=== PATIENT | male | born 1945 | race Caucasian/White ===

== ENCOUNTER → 2017-04-27 | Outpatient (CLI) | payer OTHER ==
[~2017-04-27] MED LIST: ASPI325T17 PO; DOCU-131 PO; IBUP200C8 PO; MULT-717 PO; NAPR220C2 PO; NAPROXEN PEG; ONDA4TAB7 PO; OXYC5TAB2 PO
== END ==
LOC: CFH 11:56
PROVIDERS: ATTEND Family Medicine
DX: M25.552 Pain in left hip (principal); M25.551 Pain in right hip; M25.571 Pain in right ankle and joints of right foot
CPT/HCPCS: 73523

== ENCOUNTER → 2017-11-16 | Outpatient (CLI) | payer OTHER ==
[~2017-11-16] MED LIST changes: +GADOBUTROL 7.5 MMOL/7.5 ML VIAL ONE
== END | disposition home or self-care (01) ==
LOC: CFH 09:36
PROVIDERS: ATTEND Psychiatry & Neurology Neurology
DX: G31.9 Degenerative disease of nervous system, unspecified (principal); K11.6 Mucocele of salivary gland
CPT/HCPCS: 70553; A9585

== ENCOUNTER 2020-01-05 11:16 | Observation (INO) | payer OTHER ==
[~2020-01-05] VITALS: Ht 188 cm; Wt 85.0 kg
[~2020-01-05 11:16] MED LIST changes: -GADOBUTROL 7.5 MMOL/7.5 ML VIAL ONE
[2020-01-05] MEDS ORDERED: SODIUM CHLORIDE 0.9% 1,000ML IVBOLUS ONE (12:00)
[2020-01-05] MEDS ORDERED: SODIUM CHLORIDE FLUSH 10ML SYR IVF ONE (12:00)
--- NOTE | 2020-01-05 12:09 | NUR ---
BP LOW CHARTED, 2ND LITER IVF INFUSING. LAB WAS AT [facility]. PT REMAINS A&OX4 GCS 15, JOVIAL. SR 70S. ON 2LNC. DENIES PAIN. CAN FEEL LEGS, DENIES BLOOD IN STOOL.
[2020-01-05 12:38] LABS: BASOPHILS % (AUTO) 0 % (0-1); EOSINOPHILS % (AUTO) 0 % (1-7); LYMPHOCYTES % (AUTO) 12 % (22-44); MEAN CORPUSCULAR HGB CONC 33.6 g/dL (33.2-36.2); MEAN PLATELET VOLUME 8.2 fL (7.4-10.4); MONOCYTES % (AUTO) 22 % (2-9); NEUTROPHILS % (AUTO) 66 % (42-75); PLATELET COUNT 133 x10^3/uL (130-400); RED BLOOD COUNT 4.26 x10^6/uL (4.38-5.82); RED CELL DISTRIBUTION WIDTH 13.4 % (9.4-14.8)
--- NOTE | 2020-01-05 12:40 | NUR ---
2l infused bp improved ke aware. as
[2020-01-05 12:52] LABS: ANION GAP 9 mmol/L (5-15); BILIRUBIN,TOTAL 0.4 mg/dL (0.2-1.0); CALCIUM 7.1 mg/dL (8.5-10.1); CHLORIDE 104 mmol/L (98-107); CREATININE 1.22 mg/dL (0.7-1.3)
[2020-01-05 12:53] LABS: ALANINE AMINOTRANSFERASE 10 U/L (12-78); ALKALINE PHOSPHATASE 47 U/L (45-117); TOTAL PROTEIN 5.7 g/dL (6.4-8.2)
--- NOTE | 2020-01-05 12:53 | NUR ---
LACTIC 3 TYRELL MADE AWARE 500 CC BOLUS ORDERED.
[2020-01-05] MEDS ORDERED: SODIUM CHLORIDE 0.9%, 500ML IVBOLUS ONE (13:00)
[2020-01-05 13:06] LABS: MD SCAN
--- NOTE | 2020-01-05 13:09 | NUR ---
500 CC BLUS HUNG, UA WALKED TO LAB.
[2020-01-05 13:24] LABS: MICROSCOPIC NOT IND
--- NOTE | 2020-01-05 13:37 | NUR ---
ke in room for eval, plan to admit, thinks low bp dt dehydration and taking lisinopril, no signs of infection. as
--- NOTE | 2020-01-05 13:54 | NUR ---
report to nimisha zarate rn. plan medtele admt. as
[2020-01-05] MEDS ORDERED: POTASSIUM CHLORIDE 20 MEQ TAB.ER.PRT PO ONE (14:00)
[2020-01-05] MEDS ORDERED: ONDANSETRON ODT 4 MG PO PRN ×2 (14:00→14:30)
--- NOTE | 2020-01-05 14:03 | NUR ---
ASSUMED CARE FROM TAYLA PRESLEY.
[2020-01-05] MEDS ORDERED: ONDANSETRON 2MG/ML, 2ML IVPush PRN (14:30)
[2020-01-05] MEDS ORDERED: DOCUSATE 100 MG CAPSULE PO PRN (14:30)
[2020-01-05] MEDS ORDERED: ACETAMINOPHEN 325 MG TABLET PO PRN (14:30)
[2020-01-05] MEDS ORDERED: ENALAPRILAT 1.25 MG/ML, 2ML IVPush PRN (14:30)
[2020-01-05] MEDS ORDERED: POTASSIUM CHLORIDE 20 MEQ TAB.ER.PRT ONE (14:33)
--- NOTE | 2020-01-05 14:36 | NUR ---
PT RESTING IN [facility], NO NEEDS AT THIS TIME.
[2020-01-05] MEDS: SODIUM CHLORIDE 0.9% 1,000 ML IV SCH (14:58)
--- NOTE | 2020-01-05 16:00 | NUR ---
WAFFLE MATTRESS PLACED UNDER PT FOR COMFORT.
[2020-01-05] MEDS: CARBIDOPA/LEVODOPA 25 MG/100 MG TABLET PO SCH ×2 (16:30→21:17)
--- NOTE | 2020-01-05 16:54 | NUR ---
PT RESTING ON GURNEY, NO COMPLAINTS AT THIS TIME.
[2020-01-05 18:43] VITALS: BP 103/72
[2020-01-05] MEDS ORDERED: ASPIRIN 325 MG TABLET PO SCH (21:00)
[2020-01-05] MEDS: DOCUSATE 100 MG CAPSULE PO SCH (21:17)
[2020-01-05 22:48] VITALS: BP 105/65
[2020-01-06] MEDS: SODIUM CHLORIDE 0.9% 1,000 ML IV SCH ×2 (00:53→11:47)
[2020-01-06 01:24] VITALS: BP 106/66
[2020-01-06] MEDS: CARBIDOPA/LEVODOPA 25 MG/100 MG TABLET PO SCH ×4 (05:44→21:30)
[2020-01-06 05:47] LABS: ANION GAP 8 mmol/L (5-15); CALCIUM 7.3 mg/dL (8.5-10.1); CHLORIDE 108 mmol/L (98-107); CREATININE 0.56 mg/dL (0.7-1.3)
[2020-01-06 05:56] LABS: BASOPHILS % (AUTO) 0 % (0-1); EOSINOPHILS % (AUTO) 1 % (1-7); LYMPHOCYTES % (AUTO) 22 % (22-44); MEAN CORPUSCULAR HEMOGLOBIN 32.9 pg (27.5-34.5); MEAN CORPUSCULAR HGB CONC 33.6 g/dL (33.2-36.2); MEAN PLATELET VOLUME 8.3 fL (7.4-10.4); MONOCYTES % (AUTO) 14 % (2-9); NEUTROPHILS % (AUTO) 63 % (42-75); PLATELET COUNT 122 x10^3/uL (130-400); RED BLOOD COUNT 4.42 x10^6/uL (4.38-5.82); RED CELL DISTRIBUTION WIDTH 13.2 % (9.4-14.8)
[2020-01-06 06:44] LABS: MD SCAN
[2020-01-06 07:42] VITALS: BP 94/65
[2020-01-06] MEDS: POTASSIUM CHLORIDE 20 MEQ TAB.ER.PRT PO SCH (09:41)
[2020-01-06] MEDS: DOCUSATE 100 MG CAPSULE PO SCH ×2 (09:42→21:30)
[2020-01-06 14:14] VITALS: BP 98/64
[2020-01-06 18:58] VITALS: BP 113/75
[2020-01-07 01:18] VITALS: BP 124/72
[2020-01-07] MEDS: CARBIDOPA/LEVODOPA 25 MG/100 MG TABLET PO SCH ×2 (05:50→12:15)
[2020-01-07 07:44] VITALS: BP 105/66
[2020-01-07] MEDS: POTASSIUM CHLORIDE 20 MEQ TAB.ER.PRT PO SCH (09:51)
[2020-01-07] MEDS: DOCUSATE 100 MG CAPSULE PO SCH (09:52)
[2020-01-07 12:16] VITALS: BP 109/71
[2020-01-07] MEDS ORDERED: POTA20TA6 PO (12:41)
[2020-01-07] MEDS ORDERED: CARB1TAB22 PO (12:41)
[2020-01-08] MEDS ORDERED: APIX5TAB PO (12:42)
== END 2020-01-07 15:35 | disposition home or self-care (01) ==
LOC: ED 11:59 → INTOOBSV 13:39 → EDIP 13:39 → SUATTDRO 13:58 → 4WST 18:19
PROVIDERS: ADMIT Family Medicine; ATTEND Internal Medicine
DX: I95.9 Hypotension, unspecified (principal); G20 Parkinson's disease; E87.6 Hypokalemia; E86.0 Dehydration; E87.2 Acidosis; I10 Essential (primary) hypertension; G90.9 Disorder of the autonomic nervous system, unspecified; F17.210 Nicotine dependence, cigarettes, uncomplicated; Z79.82 Long term (current) use of aspirin; Z79.899 Other long term (current) drug therapy; Z66 Do not resuscitate
CPT/HCPCS: 36415; 71045; 80048; 80053; 81003; 82533; 83605; 83735; 84145; 84443; 85025; 87040; 93005; 96360; 96361; 97162; 99285; G0378; J7030; J7040

== ENCOUNTER → 2020-06-19 | Outpatient (CLI) | payer MEDICARE, OTHER ==
[~2020-06-19] MED LIST changes: +APIX5TAB PO; +CARB1TAB22 PO; +DILT30TA27 PO; +POTA20TA6 PO; +PRED10TA PO; +REGADENOSON 0.4 MG/5 ML SYRINGE ONE
== END | disposition home or self-care (01) ==
LOC: RAD 11:57
PROVIDERS: ATTEND Internal Medicine Cardiovascular Disease
DX: I10 Essential (primary) hypertension (principal); I48.91 Unspecified atrial fibrillation; I67.9 Cerebrovascular disease, unspecified
CPT/HCPCS: 78452; 93017; A9502; J2785

== ENCOUNTER → 2020-08-02 | Outpatient (CLI) | payer OTHER ==
[~2020-08-02] MED LIST changes: -REGADENOSON 0.4 MG/5 ML SYRINGE ONE
== END | disposition home or self-care (01) ==
LOC: RAD 09:46
PROVIDERS: ATTEND Family Medicine
DX: E04.1 Nontoxic single thyroid nodule (principal); E07.89 Other specified disorders of thyroid
CPT/HCPCS: 76536